=== PATIENT | female | born 1995 | race Asian ===

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

== ENCOUNTER 2017-05-28 10:03 | Outpatient (CLI) | payer MEDICAID ==
--- NOTE | 2017-05-28 13:29 | XRAY Report ---
COMPLETE CERVICAL SPINE: 05/28/2017 CLINICAL INDICATION: Neck pain. COMPARISON: 05/22/2014. FINDINGS: AP, lateral, oblique, odontoid views of the cervical spine demonstrate normal height and alignment of the vertebral bodies. The disk spaces are preserved. There is no evidence of fracture or subluxation. IMPRESSION: NORMAL CERVICAL SPINE. TD: 05/28/2017 13:28
== END 2017-05-28 10:04 | disposition home or self-care (01) ==
LOC: DI.N 10:03
PROVIDERS: ATTEND Family Medicine
DX: M54.2 Cervicalgia (principal)
CPT/HCPCS: 72050

== ENCOUNTER 2017-12-10 12:18 | Emergency (ER) | payer MEDICAID ==
[2017-12-10] MEDS ORDERED: METOCLOPRAMIDE 10 MG TABLET PO STA (14:24)
--- NOTE | 2017-12-10 14:25 | ED Physician Documentation ---
History of Present Illness - Stated complaint Stated Complaint: NAUSEA/VOMITING 6 WKS - Chief complaint Chief Complaint: General - History obtained from History obtained from: Patient - History of Present Illness Timing: Other (22-year-old at approximately 6 weeks gestation with a week's worth of vomiting. She had significant similar problems throughout her prior . She has some diffuse and lower abdominal pain without cramping or bleeding. No urinary complaints. 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 HEENT: None Psych: None Musculoskeletal: None Derm: Other - Past Surgical History Past Surgical History: Yes Derm: Skin grafts - Present Medications Home Medications: Ambulatory Orders Medication Instructions Recorded Confirmed Metoclopramide [Reglan] 10 mg PO Q6H PRN #20 tablet 12/10/17 - Allergies Allergies/Adverse Reactions: Allergies Allergy/AdvReac Type Severity Reaction Status Date / Time No Known Drug Allergies Allergy Verified 12/10/17 12:28 - Social History Does the pt smoke?: Yes Smoking Status: Current every day smoker Does the pt drink ETOH?: No Does the pt have substance abuse?: No - Immunizations Immunizations are current?: Yes - POLST Patient has POLST: No PD ED PE NORMAL - Vitals Vital signs reviewed: Yes - General General: Alert and oriented X 3, No acute distress - Abdomen Abdomen: Normal bowel sounds, Soft, Non tender - Female Female : Other (Bedside ultrasound demonstrates single live intrauterine with positive heart tones) - Neuro Neuro: Alert and oriented X 3, Normal speech Results - Vitals Vitals: Vital Signs - 24 hr 12/10/17 12:23 Temperature 36.4 C L Heart Rate 87 Respiratory 16 Rate Blood Pressure 95/50 L O2 Saturation 100 Oxygen O2 Source Room air - Labs Labs: Laboratory Tests 12/10/17 14:20 Urine Color YELLOW Urine Clarity CLEAR Urine pH 8.0 H Ur Specific [place] 1.020 Urine Protein NEGATIVE Urine Glucose (UA) NEGATIVE Urine Ketones NEGATIVE Urine Occult Blood NEGATIVE Urine Nitrite NEGATIVE Urine Bilirubin NEGATIVE Urine Urobilinogen 0.2 (NORMAL) Ur Leukocyte Esterase NEGATIVE Ur Microscopic Review NOT INDICATED Urine Culture Comments NOT INDICATED PD MEDICAL DECISION MAKING - ED course ED course: 22-year-old with recurrent hyperemesis. Feeling better after Reglan here. Exam and bedside ultrasound without pertinent positive findings. The patient and family were counseled as to the diagnosis and need for follow-up. I counseled the patient with regard to signs and symptoms that would necessitate an urgent reevaluation in the emergency department. They understand they are welcome to return at any time if worse or if not improving as expected. This document was made in part using voice recognition software. While efforts are made to proofread this documents, sound alike and grammatical errors may occur. - Sepsis Event Vital Signs: Vital Signs - 24 hr 12/10/17 12:23 Temperature 36.4 C L Heart Rate 87 Respiratory 16 Rate Blood Pressure 95/50 L O2 Saturation 100 Oxygen O2 Source Room air Departure - Departure Disposition: 01 Home, Self Care Clinical Impression: Hyperemesis gravidarum Condition: Good Record reviewed to determine appropriate education?: Yes Instructions: ED Preg Morning Sickness Follow-Up: [facility] [Provider Group] Prescriptions: Metoclopramide [Reglan] 10 mg PO Q6H PRN #20 tablet PRN Reason: Nausea / Vomiting
[2017-12-10 15:00] LABS: BILIRUBIN,URINE NEGATIVE (NEGATIVE); GLUCOSE, URINE (UA) NEGATIVE (NEGATIVE); KETONES,URINE (UA) NEGATIVE (NEGATIVE); LEUKOCYTE ESTERASE, URINE NEGATIVE (NEGATIVE); NITRITE,URINE NEGATIVE (NEGATIVE); OCCULT BLOOD,URINE NEGATIVE (NEGATIVE); PROTEIN,URINE NEGATIVE (NEGATIVE); UROBILINOGEN,URINE 0.2 (NORMAL) E.U./dL (NORMAL)
[2017-12-10 15:01] LABS: CLARITY,URINE CLEAR (CLEAR)
[2017-12-10 15:25] VITALS: BP 100/60
== END 2017-12-10 15:24 | disposition home or self-care (01) ==
LOC: ED 12:18
DX: O21.0 Mild hyperemesis gravidarum (principal); O99.331 Smoking (tobacco) complicating pregnancy, first trimester; Z3A.01 Less than 8 weeks gestation of pregnancy
CPT/HCPCS: 81003; 99283; A9270; 81001; 87086

== ENCOUNTER 2019-06-07 13:25 | Emergency (ER) | payer MEDICAID ==
[2019-06-07 13:31] VITALS: BP 119/76
[2019-06-07 14:12] LABS: BILIRUBIN,URINE NEGATIVE (NEGATIVE); CLARITY,URINE SL. CLOUDY (CLEAR); GLUCOSE, URINE (UA) NEGATIVE (NEGATIVE); KETONES,URINE (UA) NEGATIVE (NEGATIVE); LEUKOCYTE ESTERASE, URINE NEGATIVE (NEGATIVE); NITRITE,URINE NEGATIVE (NEGATIVE); OCCULT BLOOD,URINE TRACE-INTA (NEGATIVE); PROTEIN,URINE NEGATIVE (NEGATIVE); UROBILINOGEN,URINE 0.2 (NORMAL) E.U./dL (NORMAL)
[2019-06-07 14:13] LABS: BACTERIA,URINE Few /HPF (None Seen); MUCUS,URINE Few Strands; RBC,URINE 0-5 /HPF (0-5); SQUAMOUS EPITHELIAL CELL,UR MANY Squamous (<= Few)
--- NOTE | 2019-06-07 14:20 | ED Physician Documentation ---
PD HPI FEMALE - Stated complaint Stated Complaint: FEMALE - Chief complaint Chief Complaint: Abd Pain - History obtained from History obtained from: Patient (24-year-old female comes in today with chief complaint of having concerns for chlamydia. She is with her new boyfriend who just learned today that he his previous girlfriend is positive for chlamydia and had given it to him. The patient's boyfriend came in earlier today and was treated. The patient is declining to have a pelvic exam today, though she did provide a urine sample. She does have an IUD in place and is not concerned for .) Review of Systems Constitutional: denies: Fever, Chills, Fatigue Throat: reports: Reviewed and negative Cardiac: reports: Reviewed and negative Respiratory: reports: Reviewed and negative GI: reports: Abdominal Pain. denies: Nausea, Vomiting, Diarrhea : reports: Control (IUD). 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 HEENT: None Psych: None Musculoskeletal: None Derm: Other - Past Surgical History Past Surgical History: Yes Derm: Skin grafts - Present Medications Home Medications: Ambulatory Orders Medication Instructions Recorded Confirmed Metoclopramide [Reglan] 10 mg PO Q6H PRN #20 tablet 12/10/17 - Allergies Allergies/Adverse Reactions: Allergies Allergy/AdvReac Type Severity Reaction Status Date / Time No Known Drug Allergies Allergy Verified 06/07/19 13:28 - Social History Does the pt smoke?: No Smoking Status: Former smoker Does the pt drink ETOH?: No Does the pt have substance abuse?: No - Immunizations Immunizations are current?: Yes - POLST Patient has POLST: No PD ED PE NORMAL - General General: Alert and oriented X 3, No acute distress, Well developed/nourished - HEENT HEENT: Atraumatic, PERRL, EOMI - Neck Neck: No adenopathy - Cardiac Cardiac: RRR - Respiratory Respiratory: No respiratory distress - Abdomen Abdomen: Normal bowel sounds, Soft, Non distended - Female Female : Pt declined PD ED PE EXPANDED - Abdomen Abdomen: Tender to palpation (Suprapubic region.) Results - Vitals Vitals: Vital Signs - 24 hr 06/07/19 13:28 Temperature 36.6 C Heart Rate 63 Respiratory 14 Rate Blood Pressure 119/76 O2 Saturation 98 Oxygen O2 Source Room air - Labs Labs: Laboratory Tests 06/07/19 13:50 Urine Color YELLOW Urine Clarity SL. CLOUDY Urine pH 6.0 Ur Specific [place] 1.025 Urine Protein NEGATIVE Urine Glucose (UA) NEGATIVE Urine Ketones NEGATIVE Urine Occult Blood TRACE-INTA Urine Nitrite NEGATIVE Urine Bilirubin NEGATIVE Urine Urobilinogen 0.2 (NORMAL) Ur Leukocyte Esterase NEGATIVE Urine RBC 0-5 Urine WBC 0-3 Ur Squamous Epith Cells MANY Squamous H Urine Bacteria Few Urine Mucus Few Strands Ur Microscopic Review INDICATED Urine Culture Comments NOT INDICATED PD MEDICAL DECISION MAKING - ED course Complexity details: re-evaluated patient, considered differential (GC/chlamydia, PID, vaginitis.), d/w patient Departure - Departure Disposition: 01 Home, Self Care Clinical Impression: Exposure to STD Condition: Good Instructions: ED Chlamydia Female Comments: You were treated for the STD. Your lab results should be available in 2 - 3 days. Follow up iwith your PCP in one week if your symptoms fail to improve, and for an annual female exam / evaluation.
[2019-06-07] MEDS ORDERED: cefTRIAXone 1 GM VIAL IM STA (14:29)
[2019-06-07] MEDS ORDERED: AZITHROMYCIN 250 MG TABLET PO STA (14:31)
[2019-06-07] MEDS ORDERED: cefTRIAXone 250 MG VIAL IM STA (14:52)
[2019-06-07] MEDS ORDERED: LIDOCAINE 1% 2 ML VIAL MC ONE (14:52)
[2019-06-07 20:51] LABS: TRICHOMONAS VAGINALIS DNA NEGATIVE (NEGATIVE)
== END 2019-06-07 15:24 | disposition home or self-care (01) ==
LOC: ED 13:25
DX: Z20.2 Contact with and (suspected) exposure to infections with a predominantly sexual mode of transmission (principal); Z87.891 Personal history of nicotine dependence
CPT/HCPCS: 81001; 87491; 87591; 87661; 96372; 99283; 99284; A9270; 81003; 87086